=== PATIENT | female | born 1995 | race Caucasian/White ===

== ENCOUNTER 2018-05-30 16:41 | Observation (INO) ==
[2018-05-30 18:04] LABS: Bilirubin,Urine Negative (Negative); Blood,Urine Negative (Negative); Clarity,Urine Clear (Clear); Color,Urine Yellow (Yellow); Glucose,Urine (UA) Normal (Normal); Ketones,Urine Negative (Negative); Leukocyte Esterase,Urine Trace (Negative); Nitrite,Urine Negative (Negative); Protein,Urine Negative (Neg-Trace); Specific Gravity,Urine 1.012 (1.010-1.025); Urobilinogen,Urine Normal (Normal)
[2018-05-30 18:07] LABS: Bacteria,Urine Few per hpf (None-Few); Hyaline Casts,Urine None Seen per lpf (None-Few); Squamous Epithelial Cell,Urine Many per lpf (None-Few)
[2018-05-30 18:27] LABS: Amphetamine Screen,Urine Negative ng/mL (Cutoff=1000); Barbiturate Screen,Urine Negative ng/mL (Cutoff=200); Benzodiazepines Screen,Urine Negative ng/mL (Cutoff=200); Cannabinoid Screen,Urine Negative ng/mL (Cutoff = 50); Cocaine Screen,Urine Negative ng/mL (Cutoff= 300); Opiate Screen,Urine Negative ng/mL (Cutoff=300); Phencyclidine Screen,Urine Negative ng/mL (Cutoff=25)
--- NOTE | 2018-05-30 20:33 | OB/GYN Progress Note ---
Date of Encounter: 05/30/18 Time of Encounter: 20:27 - Assessment and Plan (1) 35 weeks gestation of Current Visit: Yes Status: Acute (2) Back pain affecting in third trimester Current Visit: Yes Status: Acute pain to palpation in lower back negative CVAT SVE unchanged after 2 hours Discharge home with precautions. Hydration discussed. Subjective - Subjective Principal diagnosis: back pain Interval history: 22 year-old presenting at 35w3d with c/o lower back pain and pressure. She reports she is having contractions too. No leaking or bleeding. Good FM. She has had some spotting but this is not new for her. She denies urinary sx, vaginal discharge, itching, or burning. No other complaints. Antepartum ROS: vaginal bleeding (spotting), movement normal, contractions , no loss of fluid Objective - Vital Signs Vital Signs: Intake and Output 05/30/18 05/30/18 05/30/18 07:59 15:59 23:59 Other: Weight 76.4 kg Patient Weight 05/30/18 23:59 Weight 76.4 kg - Exam FHR: category 1 FHR comments: 13 BPM, reactive NST Abdomen: Present: soft, gravid. Absent: tenderness Uterus: Absent: tenderness Cervical dilation: 1cm, no change on repeat exam - Labs Labs: Abnormal lab results Ur Leukocyte Esterase Trace (Negative) H 05/30/18 17:43 Urine Microscopic RBC 3-5 per hpf (0-3) H 05/30/18 17:43 Urine Microscopic WBC 3-5 per hpf (0-3) H 05/30/18 17:43 Ur Squamous Epith Cells Many per lpf (None-Few) H 05/30/18 17:43 Ur Culture Indicated? NO. (NO) A 05/30/18 17:43
== END 2018-05-30 21:09 | disposition home or self-care (01) ==
LOC: 1NENULAB
PROVIDERS: ADMIT Registered Nurse; ATTEND Registered Nurse

== ENCOUNTER 2018-06-18 15:43 | Observation (INO) ==
--- NOTE | 2018-06-18 16:39 | OB/GYN Progress Note ---
Date of Encounter: 06/18/18 Time of Encounter: 16:26 - Assessment and Plan (1) 38 weeks gestation of Current Visit: Yes Status: Acute SSE - Vaginal vault free from any blood Urinalysis - Contaminated NST - reactive Discharge home with labor precautions and bleeding precautions Follow up in office with routine care as scheduled and PRN (2) NST (non-stress test) reactive Current Visit: Yes Status: Acute Subjective - Subjective Principal diagnosis: Passing vaginal blood Interval history: Ms Alba is a at 38 weeks and 1 day that presents to triage with c/o vaginal blood clots beginning this AM. She denies active bleeding. She states she had intercourse yesterday and has had decreased movement since Monday. She denies headache, vision changes, epigastric pain, leaking of fluid, and contractions. She has seen Dr Willoughby for her and denies any problems with this . Antepartum ROS: vaginal bleeding, movement normal, no contractions Objective - Vital Signs Vital Signs: Intake and Output 06/18/18 06/18/18 06/18/18 07:59 15:59 23:59 Other: Weight 76.5 kg Patient Weight 06/18/18 23:59 Weight 76.5 kg - Exam FHR: auscultation normal, category 1 FHR comments: Baseline 155; contractions irregular and infrequent Auscultation: bilateral: normal Abdomen: Present: normal appearance, soft, gravid Uterus: Present: normal. Absent: firm, tenderness Cervical dilation: 1 Cervix effacement: thick station: -2
[2018-06-18 16:42] LABS: Bilirubin,Urine Negative (Negative); Blood,Urine Large (Negative); Clarity,Urine Cloudy (Clear); Color,Urine Yellow (Yellow); Glucose,Urine (UA) Normal (Normal); Ketones,Urine Negative (Negative); Leukocyte Esterase,Urine Moderate (Negative); Nitrite,Urine Negative (Negative); Protein,Urine 30 mg/dL (Neg-Trace); Specific Gravity,Urine 1.024 (1.010-1.025); Urobilinogen,Urine Normal (Normal)
[2018-06-18 16:43] LABS: Amphetamine Screen,Urine Negative ng/mL (Cutoff=1000); Barbiturate Screen,Urine Negative ng/mL (Cutoff=200); Benzodiazepines Screen,Urine Negative ng/mL (Cutoff=200); Cannabinoid Screen,Urine Negative ng/mL (Cutoff = 50); Cocaine Screen,Urine Negative ng/mL (Cutoff= 300); Opiate Screen,Urine Negative ng/mL (Cutoff=300); Phencyclidine Screen,Urine Negative ng/mL (Cutoff=25)
[2018-06-18 16:44] LABS: Bacteria,Urine None Seen per hpf (None-Few); Hyaline Casts,Urine None Seen per lpf (None-Few); RBC,Urine TNTC per hpf (0-3); Squamous Epithelial Cell,Urine Many per lpf (None-Few)
== END 2018-06-18 17:13 | disposition home or self-care (01) ==
LOC: 1NENULAB
PROVIDERS: ADMIT Advanced Practice Midwife; ATTEND Advanced Practice Midwife

== ENCOUNTER 2018-06-29 01:44 | Observation (INO) ==
[2018-06-29 03:45] LABS: Amphetamine Screen,Urine Negative ng/mL (Cutoff=1000); Barbiturate Screen,Urine Negative ng/mL (Cutoff=200); Benzodiazepines Screen,Urine Negative ng/mL (Cutoff=200); Cannabinoid Screen,Urine Negative ng/mL (Cutoff = 50); Cocaine Screen,Urine Negative ng/mL (Cutoff= 300); Opiate Screen,Urine Negative ng/mL (Cutoff=300); Phencyclidine Screen,Urine Negative ng/mL (Cutoff=25)
[2018-06-29] MEDS ORDERED: hydrOXYzine pamoate 25 MG CAPSULE PO ONE (03:56)
[2018-06-29 04:03] LABS: Bilirubin,Urine Negative (Negative); Blood,Urine Small (Negative); Clarity,Urine Clear (Clear); Color,Urine Yellow (Yellow); Glucose,Urine (UA) Normal (Normal); Ketones,Urine Negative (Negative); Leukocyte Esterase,Urine Small (Negative); Nitrite,Urine Negative (Negative); Protein,Urine Negative (Neg-Trace); Specific Gravity,Urine 1.024 (1.010-1.025); Urobilinogen,Urine Normal (Normal)
--- NOTE | 2018-06-29 04:03 | OB/GYN Progress Note ---
Date of Encounter: 07/02/18 Time of Encounter: 03:57 - Assessment and Plan (1) 39 weeks gestation of Status: Acute NST - reactive Serial cervical exams - no change SSE - guerrero fluid pooling, blood on swab - equivocal nitrazine, and ferning negative. Membranes felt over vertex with vaginal exam vaginosis panel - negative UA - NSF Patient would like PO vistaril for aid in sleep overnight - ordered one time dose; patient has friend present to drive Discharge home with labor precautions Follow up in office with routine care and PRN (2) Vaginal discharge during in third trimester Status: Acute (3) NST (non-stress test) reactive Status: Acute Subjective - Subjective Principal diagnosis: Vaginal discharge Interval history: Ms Alba is a at 39 weeks and 5 days gestation that presents to triage with c/o increased vaginal discharge over the past 24 hours. She states the discharge is clear. She had her membranes swept at her appointment this week and c/o loss of mucous plug the day after. She states positive movement and tolerable contractions. She denies headache, vision changes, epigastric pain, and vaginal bleeding. She states she would like to wait to progress to labor on her own, but is considering IOL if she makes it to her on Monday. She has been seeing Dr Willoughby for her care. Antepartum ROS: movement normal, contractions Objective - Exam FHR: auscultation normal, category 1 FHR comments: Baseline 125. Category I tracing TOCO Contractions every 8 - 10 minutes apart Abdomen: Present: normal appearance, soft, gravid Uterus: Present: normal. Absent: firm, tenderness Cervical dilation: 2 Cervix effacement: 60 station: -2
[2018-06-29 04:05] LABS: Hyaline Casts,Urine None Seen per lpf (None-Few); RBC,Urine 0-3 per hpf (0-3); Squamous Epithelial Cell,Urine Many per lpf (None-Few); WBC,Urine 15-30 per hpf (0-3)
[2018-06-29 04:23] LABS: Bacteria,Urine Few per hpf (None-Few)
[2018-06-29 04:54] LABS: Candida DNA Not Detected (Not Detect); Gardnerella DNA Not Detected (Not Detect); Trichomonas DNA Not Detected (Not Detect)
== END 2018-06-29 05:30 | disposition home or self-care (01) ==
LOC: 1NENULAB
PROVIDERS: ADMIT Advanced Practice Midwife; ATTEND Advanced Practice Midwife

== ENCOUNTER 2018-06-29 13:58 | Inpatient (IN) ==
[2018-06-29] MEDS ORDERED: Famotidine 20 MG/2 ML VIAL IVP PRN (14:11)
[2018-06-29] MEDS ORDERED: Naloxone 0.4 MG/ML INJ IVP PRN (14:11)
[2018-06-29] MEDS ORDERED: Metoclopramide 10 MG/2 ML VIAL IVP PRN (14:11)
[2018-06-29] MEDS ORDERED: Ondansetron 4 MG/2 ML VIAL IVP PRN (14:11)
[2018-06-29] MEDS ORDERED: Oxytocin 20 units/ LR 1000 mL 20 UNIT/1,000 ML BAG IVC SCH (16:15)
[2018-06-29] MEDS: Ringers Solution, Lactated 1,000 ML IVC SCH (16:18)
[2018-06-29 16:25] LABS: Basophils % 0.3 %; Eosinophils # 0.2 K/mcL (0.0-0.6); Eosinophils % 1.1 %; Hematocrit 32.6 % (35.3-44.9); Hemoglobin 10.5 g/dL (11.5-15.4); Immature Granulocytes % 0.8 % (0-4); Lymphocytes # 2.1 K/mcL (0.6-4.6); Lymphocytes % 14.4 %; Mean Corpuscular HGB Conc 32.2 g/dL (31.6-35.5); Mean Corpuscular Hemoglobin 29.8 pg (28.0-33.3); Mean Corpuscular Volume 92.6 fL (83.0-100.0); Mean Platelet Volume 12.8 fL (9.4-12.4); Monocytes # 0.6 K/mcL (0.0-1.3); Monocytes % 4.5 %; Neutrophils # 11.3 K/mcL (1.6-8.9); Platelet Count 132 K/mcL (140-400); Red Blood Count 3.52 M/mcL (3.82-4.97); Red Cell Distribution Width 14.8 % (11.5-14.5); Segmented Neutrophils % 78.9 %
[2018-06-29 16:37] LABS: Amphetamine Screen,Urine Negative ng/mL (Cutoff=1000); Barbiturate Screen,Urine Negative ng/mL (Cutoff=200); Benzodiazepines Screen,Urine Negative ng/mL (Cutoff=200); Cannabinoid Screen,Urine Negative ng/mL (Cutoff = 50); Cocaine Screen,Urine Negative ng/mL (Cutoff= 300); Opiate Screen,Urine Negative ng/mL (Cutoff=300); Phencyclidine Screen,Urine Negative ng/mL (Cutoff=25)
--- NOTE | 2018-06-29 17:54 | OB/GYN History & Physical ---
Date of Encounter: 06/29/18 Time of Encounter: 17:25 Assessment and Plan (1) Intrauterine Current visit: Yes Status: Acute Admit to L&D for observation of labor Expectant management Labs-CBC and clot to hold Pain management plan is epidural-may have upon request Pitocin augmentation titrate to adequate contraction pattern Continuous monitoring Anticipate vaginal delivery Dr. Arias is OB injection press operator and is available as needed (2) SROM (spontaneous rupture of membranes) Current visit: Yes Status: Acute (3) 39 weeks gestation of Current visit: Yes Status: Acute History of Present Illness Chief complaint: SROM HPI: Ms. Alba is a 22 year old female 002 at 39 weeks 5 days gestation with an estimated date of of 07/01/18 dated by LMP. She presents with complaints of spontaneous rupture of membranes at 12:00 PM today. She reports a few mild cramps and endorses good movement. She denies leakage of fluid, vaginal bleeding. Her has been complicated by rubella nonimmune status and gestational thrombocytopenia. She is followed by Dr. Willoughby during her . records have been reviewed. Labs: O+ GBS negative Hep B negative HIV negative T. Palladium nonreactive GC/CL negative Rubella nonimmune Varicella nonimmune Past Med Surg Social Fam HX - Past Medical History Medical history: no medical history Psychiatric history: no psych history - Past Surgical History Surgical History: no surgical history - Social History Smoking Status: Current every day smoker Smokeless Tobacco Status: No Alcohol use: none Drug use: none - Family History Mother Adopted: No Family Member Ethnicity: Non- Living Status: Still Living Hx Family Cardiac Disorders: No Hx Family Respiratory Disorders: No Hx Family Cancer: No Hx Family GI Disorders: No Hx Family Endocrine Disorder: No Hx Family Neuromuscular Disorders: No Hx Family Neurologic Disorders: No Hx Family HEENT Disorders: No Hx Family Autoimmune Disorders: No Hx Family Medical Disorders: Yes (diabetic) Obstetrical History - Pregnancies : 3 Para: 2 Term: 2 (# 1: 11/11/15 7lb 9oz Female, Complicated: pt states he was within 30 minutes for a C Section, , Delivered in [facility]; # 2: 07/12/17 7lb 9oz Male, Uncomplicated, , Delivered in [facility]) : 0 Ab's: 0 Livin Medications and Allergies Vit Calc,Iron,Folic [ Vitamins] 1 tab PO DAILY 05/30/18 [ History] Tylenol 1 tab PO PRN PRN 06/18/18 [History] Doxylamine Succinate [Unisom] 1 tab PO PRN PRN 06/29/18 [History] 3 Allergy/AdvReac Type Severity Reaction Status Date / Time tramadol Allergy Rash Verified 06/29/18 03:16 Review of System OB All systems PM: reviewed and no additional remarkable complaints except as stated Exam - Constitutional Constitutional: well developed, well nourished, no acute distress, obese - HEENT HEENT: PERRL, Normocephaly, Mucus Membranes Moist - Neck Neck exam: full ROM - Lungs Respiratory exam: CTAB - Cardiovascular Cardiovascular exam: RRR, +S1, +S2 - Breasts Breast: bilateral: normal - Abdomen Abdomen: Present: bowel sounds normal, gravid, non tender - Extremities Extremities exam: normal capillary refill, normal inspection, radial pulses palpable and symmetrical - Vulva Vulva: bilateral: normal - Vagina Vagina: Present: normal moisture - Cervix Dilation: 2 Effacement: 50 Station: -2 - Uterus Uterus exam: Present: normal size, normal contour - Adnexa Adnexa: bilateral: normal - Anus/Rectum Anus/Rectum: Present: normal perianal skin Results Result Diagrams: 06/29/18 15:04 Abnormal lab results WBC 14.3 K/mcL (4.3-11.1) H 06/29/18 15:04 RBC 3.52 M/mcL (3.82-4.97) L 06/29/18 15:04 Hgb 10.5 g/dL (11.5-15.4) L 06/29/18 15:04 Hct 32.6 % (35.3-44.9) L 06/29/18 15:04 RDW 14.8 % (11.5-14.5) H 06/29/18 15:04 Plt Count 132 K/mcL (140-400) L 06/29/18 15:04 MPV 12.8 fL (9.4-12.4) H 06/29/18 15:04 Neutrophils # 11.3 K/mcL (1.6-8.9) H 06/29/18 15:04 All other labs normal. - VTE Reasons for not Prescribing Prophylaxis: Treatment not Indicated - Low risk for VTE
--- NOTE | 2018-06-29 20:12 | Anesthesia Evaluation PreOp ---
Date of Encounter: 06/29/18 Time of Encounter: 20:00 - Past History Planned Operation: BITA Cardiac History: Denies any Significant Hx Pulmonary History: Smoker (5pk/yr) HABITAT BIOLOGIST History: Denies Any Significant HX Other Medical History: Denies Any Significant HX Anesthesia History: No Prior Anesthetic Complications, Past Anesthesia ([place] teeth extraction) : Yes Alcohol Use: none Drug use: none Medications and Allergies Vit Calc,Iron,Folic [ Vitamins] 1 tab PO DAILY 05/30/18 [ History] Tylenol 1 tab PO PRN PRN 06/18/18 [History] Doxylamine Succinate [Unisom] 1 tab PO PRN PRN 06/29/18 [History] 3 Allergy/AdvReac Type Severity Reaction Status Date / Time tramadol Allergy Rash Verified 06/29/18 03:16 - Meds/Allergy Pre-op Review Medications Reviewed: Yes Allergies Reviewed: Yes Beta Blockers on Current Med List: No Anesthesia Results - Labs 06/29/18 15:04 Anesthesia Exam BP 127/67 P 87 R 14 T 97.8 Height: 5'2" Weight: 77.7kg NPO (# of Hours): 4 Pain Scale: 2 Pain Scale Used: Numeric (1 - 10) - HEENT Pupil (Motor): Pupils equal Mallampati: II Teeth: Normal Oral Opening: Greater than 3 - HABITAT BIOLOGIST LOC: Oriented HABITAT BIOLOGIST Motor: Normal RUE, Normal LUE, Normal RLE, Normal LLE, Normal Face HABITAT BIOLOGIST Sensory: Normal: RUE, LUE, RLE, LLE, Face - Cardiac Rhythm: Regular Murmur: None JVD: No Carotid Bruit: No - Pulmonary Breath Sounds: bilateral Clear Respiratory Effort: Symmetrical Anesthesia Assess/Plan ASA Score: 2 Modified Lincoln Scale for Level of Consciousness: Cooperative, oriented, and tranquil Anesthetic Plan: Regional Autologous Blood: Yes Monitoring Plan: Standard Monitors Recovery Plan: Other
[2018-06-30] MEDS ORDERED: Naloxone 0.4 MG/ML INJ IVP PRN (02:27)
[2018-06-30] MEDS ORDERED: Ondansetron 4 MG/2 ML VIAL IVP PRN (02:27)
[2018-06-30] MEDS ORDERED: Bupivacaine-MPF 0.25% 10 ML VIAL EP ONE (02:27)
[2018-06-30] MEDS ORDERED: EPHEDrine 50 MG/ML VIAL IVP PRN (02:27)
[2018-06-30] MEDS ORDERED: *HR* FentaNYL (PF) 100 MCG/2 ML VIAL EP ONE (02:27)
[2018-06-30] MEDS ORDERED: *HR* Ropivacaine/PF 0.2% 20 ML VIAL EP ONE (02:27)
[2018-06-30] MEDS ORDERED: Epidural Premix (fent/bupiv) 110 ML EP SCH (02:30)
[2018-06-30] MEDS ORDERED: Lidocaine -MPF 2% 5 ML VIAL ONE (02:31)
[2018-06-30] MEDS ORDERED: *HR* FentaNYL (PF) 100 MCG/2 ML VIAL ONE (02:31)
--- NOTE | 2018-06-30 02:35 | Anesthesia Procedures ---
Date of Encounter: 06/30/18 Time of Encounter: 02:40 Procedures: Anesthesia - Epidural/Spinal Patient ID/Chart reviewed: Yes Patient examined: Yes OB Eval: Gestational age: 39 OB Eval: : 3 OB Eval: Hx Para: 2 OB Eval: Dilated at (cm): 3 OB Eval: Contractions: Non-stressed pattern Consent Obtained: Yes Supplemental Oxygen: None/Room Air Site Prep: Aseptic Technique, Sterile prep and drape, Povidone-Iodine 1% Patient position: upright Local Anesthetic: Lidocaine 1% Amount of Local Anesthetic used: 3 Touhy Needle Gauge: 18 Touhy Needle Depth (cm): 5 Catheter Depth at Skin (cm): 15 Test Dose (1.5% Lido + Epi): Volume given (mls): 3 Test Dose Result: Negative Loading Dose: 0.25% Marcaine (mls): 8 Loading Dose: Fentanyl (mcg): 100 Loading Dose: Other: Naropin 0.2% 8ml Loading Dose Administered: Thru Catheter Infusion Med: 0.125% Bupivacaine w/ 2 mcg/ml Fentanyl Infusion Rate (mls/hr): [address]: Tegaderm, Tape Interspace Used: L4-L5 Loss of Resistance (JENNIFER): Yes Blood: No CSF: No Paresthesia: No Procedure: BITA placed 1st pass in upright position without any immediate noted complications. VSS and FHT stable throughout. Vitals + FHT's: 0236 BP 141/82 P 74 R 18 0255 BP 131/67 P 91 R 16 FHT 130
[2018-06-30] MEDS: Ringers Solution, Lactated 1,000 ML IVC SCH (07:49)
--- NOTE | 2018-06-30 07:53 | OB Labor Progress Note ---
Date of Encounter: 06/30/18 Time of Encounter: 04:30 Labor Progress Note - Subjective Subjective: Patient comfortable with epidural. - Cervix Cervix: 3-4/70/-2 - Heart Tones Heart Tones: FHR Category I - [place] Woodworth: Contractions every 3-4 minutes and palpate moderate - Interventions Interventions: SVE Stop pitocin x 1 hour and then restart - Plan Plan: Continue exptectant management Frequent position changes with peanut ball Pitocin break x 1 hour then restart Anticipate
--- NOTE | 2018-06-30 09:13 | OB Labor Progress Note ---
Date of Encounter: 06/30/18 Time of Encounter: 09:11 Labor Progress Note - Subjective Subjective: Patient resting comfortably with epidural in place. - Cervix Cervix: 4.5/80/-2 - Heart Tones Heart Tones: 145 bpm, moderate variability, +15x15 accels, no decels. - [place]: 2-3 minutes. - Interventions Interventions: SVE with change noted. BOW palpated, SROM of forebag for small amount of clear fluid. IUPC placed for accurate contraction monitoring - Plan Plan: Continue increasing Pitocin as able Anticipate
--- NOTE | 2018-06-30 13:30 | OB/GYN Procedure Note ---
Delivery - Delivery Date: 06/30/18 Provider: Chrissy Lopez Intrapartum events: prolonged labor- > = 20hr Delivery induction: oxytocin Delivery augmentation: rupture of membranes (forebag) Delivery monitor: external FHT, external uterine, internal uterine Anesthesia: epidural Quantitated Blood Loss: 150 - Infant (s) Infant A Delivery Date: 06/30/18 Infant Delivery Time: :18 Presentation: vertex Position: CARROLL Route of delivery: Gender: Male Viability: Viable Pounds: 7 Ounces: 10 Weight Gram: 3.465 kg at 1 minute: 9 at 5 mins: 9 Shoulder Dystocia: not encountered Specimens collected: cord blood Placenta: spontaneous, uterine exploration Cord: 3 umbilical vessels - Repair Episiotomy: none Laceration Description: None - Complications Delivery complications: none Delivery comments: The patient was complete and pushing with epidural anesthesia with a spontaneous vaginal delivery in the CARROLL position of a vigorous male weighing 7 lbs.10 oz. with Apgars of 9 at 1 minute and 9 at 5 minutes. Infant was placed on the maternal abdomen. The cord was clamped and cut after pulsations ceased. Cord blood obtained. The placenta was delivered spontaneous and intact. The uterus was explored digitally and no retained products of conception appreciated. Estimated blood loss 150 mL, complications none. Delivery was attended with Dee Urbano CNM - Disposition Mom disposition: stable in LDR disposition: stable in LDR
[2018-06-30] MEDS ORDERED: Measles/Mumps/Rubella Vacc 0.5 ML VIAL SQ PRN (16:28)
[2018-06-30] MEDS ORDERED: Oxytocin 20 units/ LR 1000 mL 20 UNIT/1,000 ML BAG IVC SCH (16:28)
[2018-06-30] MEDS ORDERED: Acetaminophen 325 MG TABLET PO PRN (16:28)
[2018-06-30] MEDS: Ibuprofen 600 MG TABLET PO PRN (21:48)
[2018-07-01] MEDS: Ibuprofen 600 MG TABLET PO PRN (04:15)
[2018-07-01 05:46] LABS: Basophils % 0.2 %; Eosinophils # 0.2 K/mcL (0.0-0.6); Eosinophils % 0.9 %; Hematocrit 29.2 % (35.3-44.9); Hemoglobin 9.5 g/dL (11.5-15.4); Immature Granulocytes % 0.9 % (0-4); Lymphocytes # 2.4 K/mcL (0.6-4.6); Lymphocytes % 14.2 %; Mean Corpuscular HGB Conc 32.5 g/dL (31.6-35.5); Mean Corpuscular Hemoglobin 30.1 pg (28.0-33.3); Mean Corpuscular Volume 92.4 fL (83.0-100.0); Mean Platelet Volume 13.4 fL (9.4-12.4); Monocytes # 1.1 K/mcL (0.0-1.3); Monocytes % 6.4 %; Neutrophils # 13.2 K/mcL (1.6-8.9); Platelet Count 108 K/mcL (140-400); Red Blood Count 3.16 M/mcL (3.82-4.97); Red Cell Distribution Width 14.7 % (11.5-14.5); Segmented Neutrophils % 77.4 %
[2018-07-01 08:02] VITALS: BP 115/68
[2018-07-01] MEDS ORDERED: Prenatal Vit/FA 1 EACH TABLET PO SCH (09:00)
--- NOTE | 2018-07-01 09:15 | Discharge Summary ---
Date of Encounter: 07/01/18 Time of Encounter: 09:12 - Discharge Diagnosis (1) Vaginal delivery Priority: Primary Status: Acute Comments: Continue routine care discharge home today follow up with Dr. Willoughby in 4-6 weeks (2) anemia Priority: Secondary Status: Acute Comments: Patient to continue ferrous sulfate daily - Discharge Medications Home Medications: Vit Calc,Iron,Folic [ Vitamins] 1 tab PO DAILY 05/30/18 [ History] Ferrous Sulfate 325 mg PO DAILY@0800 tablet 07/01/18 [Rx] Ibuprofen [Motrin] 600 mg PO Q6HR PRN tablet 07/01/18 [Rx] Allergies/Adverse Reactions: 3 Allergy/AdvReac Type Severity Reaction Status Date / Time tramadol Allergy Rash Verified 06/29/18 03:16 Data Procedures and tests throughout hospitalization: Laboratory Tests 06/29/18 06/29/18 06/29/18 15:04 15:04 15:04 WBC 14.3 H RBC 3.52 L Hgb 10.5 L Hct 32.6 L MCV 92.6 MCH 29.8 MCHC 32.2 RDW 14.8 H Plt Count 132 L MPV 12.8 H Immature Gran % 0.8 Seg Neutrophils % 78.9 Lymphocytes % 14.4 Monocytes % 4.5 Eosinophils % 1.1 Basophils % 0.3 Neutrophils # 11.3 H Lymphocytes # 2.1 Monocytes # 0.6 Eosinophils # 0.2 Basophils # 0.0 Urine Opiates Screen Negative Ur Barbiturates Screen Negative Ur Phencyclidine Scrn Negative Ur Amphetamines Screen Negative U Benzodiazepines Scrn Negative Urine Cocaine Screen Negative U Marijuana (THC) Screen Negative Ur Drug Screen Interp See Below Hep Bs Antigen Nonreactive 07/01/18 04:23 WBC 17.1 H RBC 3.16 L Hgb 9.5 L Hct 29.2 L MCV 92.4 MCH 30.1 MCHC 32.5 RDW 14.7 H Plt Count 108 L MPV 13.4 H Immature Gran % 0.9 Seg Neutrophils % 77.4 Lymphocytes % 14.2 Monocytes % 6.4 Eosinophils % 0.9 Basophils % 0.2 Neutrophils # 13.2 H Lymphocytes # 2.4 Monocytes # 1.1 Eosinophils # 0.2 Basophils # 0.0 Urine Opiates Screen Ur Barbiturates Screen Ur Phencyclidine Scrn Ur Amphetamines Screen U Benzodiazepines Scrn Urine Cocaine Screen U Marijuana (THC) Screen Ur Drug Screen Interp Hep Bs Antigen Labs on day of discharge: Labs from last 24 hours 07/01/18 04:23 WBC 17.1 H RBC 3.16 L Hgb 9.5 L Hct 29.2 L MCV 92.4 MCH 30.1 MCHC 32.5 RDW 14.7 H Plt Count 108 L MPV 13.4 H Immature Gran % 0.9 Seg Neutrophils % 77.4 Lymphocytes % 14.2 Monocytes % 6.4 Eosinophils % 0.9 Basophils % 0.2 Neutrophils # 13.2 H Lymphocytes # 2.4 Monocytes # 1.1 Eosinophils # 0.2 Basophils # 0.0 Date of admission: 06/29/18 13:58 Primary care physician: PCP NONE Discharging clinician: Natalia Cole Anticipated date of discharge: 07/01/18 - Patient Status Disposition: Home, Self-Care Condition: Good Functional capacity at discharge: independent ambulation - Discharge Instructions Follow Up With: NONE,PCP [Primary Care Provider] - Anitra Willoughby DO [Partnered Physician] - - Diet and Activity Activity: increase activity as tolerated Diet: regular diet Hospital Course Reason for admission: active labor, rupture of membranes Delivery: Episiotomy: none Laceration: none Other procedures: none complications: none Discharge diagnosis: IUP at term delivered [place] baby: male (bottle feeding) Time Attestation: Total time spent providing and/or coordinating discharge services: Time Spent: Less than 30 minutes Exam - Constitutional Vitals: Temp Pulse Resp BP Pulse Ox 97.8 F 83 16 115/68 98 07/01/18 08:01 07/01/18 08:01 07/01/18 08:01 07/01/18 08:01 07/01/18 04:09 General appearance IM: A&O X 3, pleasant, answers questions appropriately - Respiratory Respiratory exam: Present: CTAB - Cardiovascular Cardiovascular exam IM: Present: RRR, +S1, +S2 - GI/Abdominal GI/Abdominal exam IM: normal bowel sounds - Uterine Tone: Firm Uterus Position: At Umbilicus, Midline - Extremities Exam Extremities exam IM: Present: full ROM, normal capillary refill, normal inspection - Neurological Exam Neurological exam: alert, oriented X3, reflexes normal
== END 2018-07-01 14:59 | disposition home or self-care (01) | DRG 560 ==
LOC: 1NENULAB → OBSVTOIN 13:58 → 1NENUOBS 06-30 16:18
PROVIDERS: ADMIT Advanced Practice Midwife; ATTEND Advanced Practice Midwife

== ENCOUNTER 2019-05-18 12:29 | Observation (INO) ==
[2019-05-18 13:06] LABS: Bilirubin,Urine Negative (Negative); Blood,Urine Negative (Negative); Clarity,Urine Clear (Clear); Color,Urine Yellow (Yellow); Glucose,Urine (UA) Normal (Normal); Ketones,Urine Negative (Negative); Leukocyte Esterase,Urine Small (Negative); Nitrite,Urine Negative (Negative); PH,Urine 6.5 pH Units (5.0-8.0); Protein,Urine Negative (Neg-Trace); Specific Gravity,Urine 1.018 (1.010-1.025); Urobilinogen,Urine Normal (Normal)
[2019-05-18 13:07] LABS: Bacteria,Urine Few per hpf (None-Few); Hyaline Casts,Urine None Seen per lpf (None-Few); RBC,Urine 0-3 per hpf (0-3); Squamous Epithelial Cell,Urine Many per lpf (None-Few)
[2019-05-18 13:12] LABS: Amphetamine Screen,Urine Negative ng/mL (Cutoff=1000); Barbiturate Screen,Urine Negative ng/mL (Cutoff=200); Benzodiazepines Screen,Urine Negative ng/mL (Cutoff=200); Cannabinoid Screen,Urine Negative ng/mL (Cutoff = 50); Cocaine Screen,Urine Negative ng/mL (Cutoff= 300); Opiate Screen,Urine Negative ng/mL (Cutoff=300); Phencyclidine Screen,Urine Negative ng/mL (Cutoff=25)
--- NOTE | 2019-05-18 13:21 | OB/GYN Progress Note ---
Date of Encounter: 05/18/19 Time of Encounter: 13:13 - Assessment and Plan (1) 27 weeks gestation of Current Visit: Yes Status: Acute Appropriate FHTs; no contractions CBC normal urinalysis normal Recommended heat and/or cold application and tylenol PRN Recommended maternity support belt Return to work on Monday Follow up in the office and PRN POC per consult with Dr Dawkins (2) Muscular abdominal pain in left flank Current Visit: Yes Status: Acute Subjective - Subjective Principal diagnosis: Midback pain Interval history: Ms Alba is a at 27 weeks and 3 days gestation that presents to triage that c/o midback pain that radiates around her abdomen that began today. She states she had positive movement. She admits to intercourse in the past 48 hours. She denies cramping, contractions, vaginal bleeding, headaches, vision changes, and epigastric pain. She states she has had a UTI for "4 months" that she just got over. She denies fever and flu-like symptoms. 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 She denies doing anything new or unusual to her routine recently. She is seen by Dr Willoughby for her care. ` Antepartum ROS: movement normal, no contractions Objective - Vital Signs Vital Signs: Intake and Output 05/17/19 05/18/19 05/18/19 23:59 07:59 15:59 Other: Weight 71.8 kg Patient Weight 05/18/19 23:59 Weight 71.8 kg - Exam FHR: auscultation normal FHR comments: FHTs appropriate for gestation. Baseline 150 with moderate variability and 10 x 10 accels. No contractions per report, palpation, or toco Abdomen: Present: normal appearance, soft, gravid, tenderness (left CVA tenderness) Uterus: Present: normal. Absent: firm, tenderness - Labs Labs: Abnormal lab results Ur Leukocyte Esterase Small (Negative) H 05/18/19 12:40
[2019-05-18 13:27] LABS: Calcium Oxalate Crystals,Urine Present
[2019-05-18 13:50] LABS: Basophils # 0.1 K/mcL (0.0-0.2); Basophils % 0.3 %; Eosinophils # 0.2 K/mcL (0.0-0.6); Eosinophils % 1.1 %; Hematocrit 35.3 % (35.3-44.9); Hemoglobin 11.6 g/dL (11.5-15.4); Immature Granulocytes % 1.6 % (0-4); Lymphocytes # 2.4 K/mcL (0.6-4.6); Lymphocytes % 16.5 %; Mean Corpuscular HGB Conc 32.9 g/dL (31.6-35.5); Mean Corpuscular Hemoglobin 31.7 pg (28.0-33.3); Mean Corpuscular Volume 96.4 fL (83.0-100.0); Monocytes # 0.7 K/mcL (0.0-1.3); Monocytes % 4.9 %; Platelet Count 152 K/mcL (140-400); Red Blood Count 3.66 M/mcL (3.82-4.97); Red Cell Distribution Width 13.4 % (11.5-14.5); Segmented Neutrophils % 75.6 %; White Blood Count 14.6 K/mcL (4.3-11.1)
== END 2019-05-18 14:01 | disposition home or self-care (01) ==
LOC: 1NENULAB
PROVIDERS: ADMIT Advanced Practice Midwife; ATTEND Advanced Practice Midwife

== ENCOUNTER → 2019-06-09 22:05 | Observation (INO) ==
[2019-06-09 20:18] LABS: Amphetamine Screen,Urine Negative ng/mL (Cutoff=1000); Barbiturate Screen,Urine Negative ng/mL (Cutoff=200); Benzodiazepines Screen,Urine Negative ng/mL (Cutoff=200); Cannabinoid Screen,Urine Negative ng/mL (Cutoff = 50); Cocaine Screen,Urine Negative ng/mL (Cutoff= 300); Opiate Screen,Urine Negative ng/mL (Cutoff=300); Phencyclidine Screen,Urine Negative ng/mL (Cutoff=25)
--- NOTE | 2019-06-09 20:18 | OB/GYN Progress Note ---
Date of Encounter: 06/09/19 Time of Encounter: 20:13 - Assessment and Plan (1) 30 weeks gestation of Current Visit: Yes Status: Acute Vaginosis panel negative Urine completed at [facility] and normal BMZ first dose given procardia 10mg po Discharge home with labor precautions, Rx for terazol Follow up in office as scheduled and PRN POC per consult with Dr Nolan (2) uterine contractions in third trimester, antepartum Current Visit: Yes Status: Acute (3) NST (non-stress test) reactive Current Visit: Yes Status: Acute Subjective - Subjective Principal diagnosis: contractions Interval history: Ms Alba is a at 30 weeks and 4 days that presents to triage with c/o contractions that began about 6 pm last night. She states positive movement. She denies headaches, vision changes, epigastric pain, and leaking of fluid. She states that she went to [facility] this afternoon because her contractions were hurting in her lower abdomen and back enough to be concerning. She was c hecked and told she was not quite one centimeter dilated, thick, and that her cervix was soft. After she returned home she began having contractions so severe that she was doubling over in pain and had some spotting. This has been otherwise uncomplicated. She has been seen by Dr Willoughby for her care. Antepartum ROS: movement normal, contractions Objective - Exam FHR: auscultation normal, category 1 FHR comments: Contractions every 3-4 minutes per toco; palpate soft to mild FHT Baseline 150 with moderate variablity and 10 x 10 accels. No decels. Abdomen: Present: normal appearance, soft, gravid Uterus: Present: normal. Absent: firm, tenderness Cervical dilation: FT Cervix effacement: Thick station: -3 Comments: SSE - normal appearing vaginal rosenberg and cervix. Moderate amount of guerrero/white thin discharge near cervix. Vaginosis panel collected Yeast discharge on glove after SSE
[2019-06-09 21:12] LABS: Candida DNA Not Detected (Not Detect); Gardnerella DNA Not Detected (Not Detect); Trichomonas DNA Not Detected (Not Detect)
[~2019-06-09 22:05] MED LIST: *HR* Nalbuphine 10 MG/ML AMPUL IM ONE; *HR* Promethazine 25 MG/ML VIAL IM ONE; Betamethasone Acet/SodPhos 30 MG/5 ML VIAL IM SCH; NIFEdipine 10 MG CAPSULE PO ONE; Ringers Solution, Lactated 1,000 ML IVC SCH
== END | disposition home or self-care (01) ==
LOC: 1NENULAB
PROVIDERS: ADMIT Advanced Practice Midwife; ATTEND Advanced Practice Midwife

== ENCOUNTER → 2019-06-10 20:40 | Observation (INO) ==
[2019-06-10 18:07] LABS: Bilirubin,Urine Negative (Negative); Blood,Urine Moderate (Negative); Clarity,Urine Cloudy (Clear); Color,Urine Yellow (Yellow); Glucose,Urine (UA) Normal (Normal); Ketones,Urine Negative (Negative); Leukocyte Esterase,Urine Moderate (Negative); Nitrite,Urine Positive (Negative); Protein,Urine 30 mg/dL (Neg-Trace); Specific Gravity,Urine 1.027 (1.010-1.025); Urobilinogen,Urine Normal (Normal)
[2019-06-10 18:09] LABS: Bacteria,Urine Many per hpf (None-Few); Squamous Epithelial Cell,Urine Many per lpf (None-Few)
[2019-06-10 18:24] LABS: Calcium Oxalate Crystals,Urine Present
[2019-06-10 18:25] LABS: WBC,Urine 30-50 per hpf (0-3)
--- NOTE | 2019-06-10 20:17 | OB/GYN Progress Note ---
Date of Encounter: 06/10/19 Time of Encounter: 20:12 - Assessment and Plan (1) UTI (urinary tract infection) in in third trimester Current Visit: Yes Status: Acute No contractions seen on monitoring, no cervical change noted, UA indicates UTI, reviewed with Dr. Trevino, given 1g rocephin IM , per Dr. Trevino no further po coverage needed. Second betamethasone given, discharged home with labor and pyelo precautions given. Pt verbalizes understanding (2) NST (non-stress test) reactive Current Visit: No Status: Acute Subjective - Subjective Interval history: 30+5 presents to triage with complaints of back pain and contractions, Pt states her contractions started again about 1400 and feel like consistant back pain. Reports good movement, denies vaginal bleeding or leaking of fluid. Antepartum ROS: movement normal, contractions, no loss of fluid, no vaginal bleeding Objective - Vital Signs Vital Signs: Intake and Output 06/10/19 06/10/19 06/10/19 07:59 15:59 23:59 Other: Weight 72.9 kg Patient Weight 06/10/19 23:59 Weight 72.9 kg - Exam FHR: auscultation normal FHR comments: baseline 140 Abdomen: Present: soft, gravid Cervical dilation: ft/thick/high Comments: negative CVA tenderness noted. - Labs Labs: Abnormal lab results Urine Clarity Cloudy (Clear) A 06/10/19 17:40 Ur Specific [place] 1.027 (1.010-1.025) H 06/10/19 17:40 Urine Protein 30 mg/dL (Neg-Trace) H 06/10/19 17:40 Urine Blood Moderate (Negative) H 06/10/19 17:40 Urine Nitrite Positive (Negative) A 06/10/19 17:40 Ur Leukocyte Esterase Moderate (Negative) H 06/10/19 17:40 Urine Microscopic RBC 5-15 per hpf (0-3) H 06/10/19 17:40 Urine Microscopic WBC 30-50 per hpf (0-3) H 06/10/19 17:40 Ur Squamous Epith Cells Many per lpf (None-Few) H 06/10/19 17:40 Urine Bacteria Many per hpf (None-Few) H 06/10/19 17:40 Ur Culture Indicated? YES (NO) A 06/10/19 17:40
[~2019-06-10 20:40] MED LIST changes: -*HR* Nalbuphine 10 MG/ML AMPUL IM ONE; -*HR* Promethazine 25 MG/ML VIAL IM ONE; +Acetaminophen 325 MG TABLET PO ONE; -Betamethasone Acet/SodPhos 30 MG/5 ML VIAL IM SCH; +CefTRIAXone 1,000 MG VIAL IM ONE; -NIFEdipine 10 MG CAPSULE PO ONE; +Nitrofurantoin (BID) 100 MG CAPSULE PO SCH; +Ringers Solution, Lactated 1,000 ML IVC ONE
== END | disposition home or self-care (01) ==
LOC: 1NENULAB
PROVIDERS: ADMIT Advanced Practice Midwife; ATTEND Advanced Practice Midwife

== ENCOUNTER 2019-07-31 18:00 | Inpatient (IN) ==
[2019-07-31] MEDS ORDERED: miSOPROStol 25 MCG TABLET VG PRN (18:32)
[2019-07-31] MEDS ORDERED: Ondansetron 4 MG/2 ML VIAL IVP PRN (18:37)
[2019-07-31] MEDS ORDERED: Famotidine 20 MG/2 ML VIAL IVP PRN (18:37)
[2019-07-31] MEDS ORDERED: Metoclopramide 10 MG/2 ML VIAL IVP PRN (18:37)
[2019-07-31] MEDS ORDERED: Naloxone 0.4 MG/ML INJ IVP PRN (18:37)
[2019-07-31] MEDS ORDERED: Oxytocin 20 units/ LR 1000 mL 20 UNIT/1,000 ML BAG IVC SCH (18:45)
[2019-07-31 19:03] LABS: Basophils % 0.2 %; Eosinophils # 0.1 K/mcL (0.0-0.6); Hematocrit 34.1 % (35.3-44.9); Hemoglobin 11.6 g/dL (11.5-15.4); Immature Granulocytes % 0.7 % (0-4); Lymphocytes % 14.7 %; Mean Corpuscular Hemoglobin 31.4 pg (28.0-33.3); Mean Corpuscular Volume 92.4 fL (83.0-100.0); Mean Platelet Volume 12.6 fL (9.4-12.4); Monocytes # 0.8 K/mcL (0.0-1.3); Neutrophils # 10.4 K/mcL (1.6-8.9); Platelet Count 134 K/mcL (140-400); Red Blood Count 3.69 M/mcL (3.82-4.97); Red Cell Distribution Width 14.4 % (11.5-14.5); Segmented Neutrophils % 77.4 %; White Blood Count 13.4 K/mcL (4.3-11.1)
[2019-07-31 19:19] LABS: Amphetamine Screen,Urine Negative ng/mL (Cutoff=1000); Barbiturate Screen,Urine Negative ng/mL (Cutoff=200); Benzodiazepines Screen,Urine Negative ng/mL (Cutoff=200); Cannabinoid Screen,Urine Negative ng/mL (Cutoff = 50); Cocaine Screen,Urine Negative ng/mL (Cutoff= 300); Opiate Screen,Urine Negative ng/mL (Cutoff=300); Phencyclidine Screen,Urine Negative ng/mL (Cutoff=25)
[2019-07-31] MEDS: D5% in Lactated Ringers 1,000 ML IVC SCH (20:00)
[2019-07-31] MEDS ORDERED: EPHEDrine 50 MG/ML VIAL IVP PRN (20:01)
[2019-07-31] MEDS ORDERED: Epidural Premix (fent/bupiv) 110 ML EP SCH (20:15)
[2019-07-31] MEDS ORDERED: miSOPROStol 25 MCG TABLET PO STA (23:14)
[2019-08-01] MEDS: *HR* Nalbuphine 10 MG/ML AMPUL IVP PRN ×2 (00:31→04:32)
[2019-08-01] MEDS: D5% in Lactated Ringers 1,000 ML IVC SCH (03:45)
[2019-08-01] MEDS ORDERED: Oxytocin 20 units/ LR 1000 mL 20 UNIT/1,000 ML BAG IVC SCH ×2 (04:00→11:20)
[2019-08-01] MEDS ORDERED: Ringers Solution, Lactated 1,000 ML ONE (04:25)
[2019-08-01] MEDS ORDERED: *HR* FentaNYL (PF) 100 MCG/2 ML VIAL ONE (04:52)
[2019-08-01] MEDS ORDERED: Ropivacaine/PF 0.2% 20 ML VIAL ONE (04:52)
[2019-08-01] MEDS ORDERED: 0.9 % Sodium Chloride 1,000 ML ONE (06:58)
[2019-08-01] MEDS ORDERED: Prenatal Vit/FA 1 EACH TABLET PO SCH (11:20)
[2019-08-01] MEDS: Acetaminophen 325 MG TABLET PO PRN ×2 (11:20→19:47)
[2019-08-01] MEDS ORDERED: Benzocaine/Menthol 56 GM AEROSOL SPRAY TP PRN (11:20)
[2019-08-01] MEDS ORDERED: Measles/Mumps/Rubella Vacc 0.5 ML VIAL SQ PRN (11:20)
[2019-08-01] MEDS ORDERED: Rho Immune Globulin 1,500 UNIT SYRINGE IM PRN (11:20)
[2019-08-01] MEDS ORDERED: Oxytocin 20 units/ LR 1000 mL 20 UNIT/1,000 ML BAG IVC ONE (11:20)
[2019-08-01] MEDS: Ibuprofen 600 MG TABLET PO PRN (21:27)
[2019-08-02 06:51] LABS: Basophils % 0.2 %; Eosinophils # 0.2 K/mcL (0.0-0.6); Eosinophils % 1.2 %; Hematocrit 31.5 % (35.3-44.9); Hemoglobin 10.1 g/dL (11.5-15.4); Immature Granulocytes % 0.5 % (0-4); Lymphocytes # 2.6 K/mcL (0.6-4.6); Lymphocytes % 19.7 %; Mean Corpuscular HGB Conc 32.1 g/dL (31.6-35.5); Mean Corpuscular Hemoglobin 31.1 pg (28.0-33.3); Mean Corpuscular Volume 96.9 fL (83.0-100.0); Mean Platelet Volume 13.3 fL (9.4-12.4); Monocytes # 0.8 K/mcL (0.0-1.3); Monocytes % 5.8 %; Neutrophils # 9.7 K/mcL (1.6-8.9); Platelet Count 122 K/mcL (140-400); Red Blood Count 3.25 M/mcL (3.82-4.97); Red Cell Distribution Width 14.5 % (11.5-14.5); Segmented Neutrophils % 72.6 %; White Blood Count 13.4 K/mcL (4.3-11.1)
[2019-08-02] MEDS ORDERED: Ringers Solution, Lactated 1,000 ML ONE (12:18)
[2019-08-02] MEDS ORDERED: Ondansetron 4 MG/2 ML VIAL IVP ONE (18:34)
[2019-08-02] MEDS ORDERED: *HR* HYDROmorphone (PF) 1 MG/ML SYRINGE IVP PRN (18:34)
[2019-08-02] MEDS ORDERED: *HR* OxyCODONE Immed Rel 5 MG TABLET PO PRN (18:34)
[2019-08-02] MEDS ORDERED: *HR* Meperidine 25 MG/ML SYRINGE IVP PRN (18:34)
[2019-08-02] MEDS ORDERED: *HR* Promethazine 25 MG/ML VIAL IVP PRN (18:34)
[2019-08-02] MEDS ORDERED: *HR* FentaNYL (PF) 100 MCG/2 ML VIAL ONE (18:59)
[2019-08-02] MEDS ORDERED: Lidocaine -MPF 2% 5 ML VIAL ONE (18:59)
[2019-08-02] MEDS ORDERED: *HR* Rocuronium Bromide 50 MG/5 ML VIAL ONE (18:59)
[2019-08-02] MEDS ORDERED: *HR* Propofol 200 MG/20 ML VIAL IVP ONE (19:00)
[2019-08-02] MEDS ORDERED: Ketorolac 30 MG/ML VIAL ONE (19:01)
[2019-08-02] MEDS ORDERED: Ondansetron 4 MG/2 ML VIAL ONE (19:01)
[2019-08-02] MEDS ORDERED: Dexamethasone 4 MG/ML VIAL ONE (19:01)
[2019-08-02] MEDS ORDERED: Neostigmine Methylsulfate 3 MG/3 ML SYRINGE ONE (19:42)
[2019-08-02] MEDS: Ibuprofen 600 MG TABLET PO PRN (21:46)
[2019-08-02 22:03] VITALS: BP 111/66
== END 2019-08-02 23:00 | disposition home or self-care (01) | DRG 541 ==
LOC: 1NENULAB 18:07 → 1NENUOBS 08-01 10:24
PROVIDERS: ADMIT Obstetrics & Gynecology; ATTEND Obstetrics & Gynecology